=== PATIENT | female | born 1990 | race Caucasian/White ===

== ENCOUNTER → 2020-04-03 13:46 | Outpatient (CLI) | payer BC, SELFPAY ==
[2020-04-04 10:29] LABS: Covid-19 Nasal PCR Sendout P&C Positive
== END ==
PROVIDERS: PCP Family Medicine; Visit Provider Family Medicine
DX: Z20.828 Contact with and (suspected) exposure to other viral communicable diseases (principal); U07.1 COVID-19
CPT/HCPCS: U0004

== ENCOUNTER 2021-02-08 09:16 | Emergency (ER) | payer BC, SELFPAY ==
[2021-02-08 09:26] VITALS: BP 115/82; PULSE 92; RESP 16; TEMP 36.9; O2SAT 97; BMI 20.7
[2021-02-08 09:34] VITALS: BP 115/82; PULSE 92; RESP 16; TEMP 36.9
[2021-02-08 09:37] LABS: UTC Strep Screen (Rapid) Positive (Negative)
--- NOTE | 2021-02-08 09:56 | HMH.EDUTC ---
[facility] [place]ression: Strep throat Disposition: Home, Self-Care Condition on Discharge: Good Instructions: Strep Throat, DI for Strep Throat Additional Instructions: Drink plenty of fluids. Take tylenol or ibuprofen for pain or fever. Take the medications as directed. Follow up with your regular doctor. GO TO THE ER FOR ANY WORSENING SYMPTOMS Throw your tooth brush away and get a new one. Prescriptions: Ondansetron [Zofran 4mg ODT] 4 mg PO Q8HP PRN #20 tab PRN Reason: Nausea Transmission Status: Received by [facility] Amoxicillin [Amoxicillin 500mg Tab] 500 mg PO TID 10 Days #30 tab Transmission Status: Received by [facility] predniSONE [Deltasone 10mg tablet] 10 mg PO BID 3 Days #6 tab Transmission Status: Received by [facility] Referrals: Blaine Miller MD [Primary Care Provider] - Time of Disposition: 09:59 Medical Decision Making - Medical Records Medical records reviewed: No: I reviewed the patient's medical records. - Juan Inquiry Pt receiving controlled substance: No Vital Signs: 02/08/21 09:26 02/08/21 09:34 Temperature 98.4 F 98.4 F Temperature Source Oral Pulse Rate 92 H Pulse Rate [Left] 92 H Respiratory Rate 16 16 Blood Pressure 115/82 Blood Pressure [Right Arm] 115/82 Blood Pressure Mean [Right Arm] 93 02 Sat by Pulse Oximetry 97 - Lab Data Lab results reviewed: Yes: I reviewed the patient's lab results. Lab Results 02/08/21 09:28: Strep Scn Rapid Clinic Positive [place] [facility] [place] - General Stated complaint: sore throat,runny nose Time Seen by Provider: 02/08/21 09:56 Mode of Arrival: Ambulatory Source of Information: Patient Limitations: No Limitations Description of Symptoms (Recalled from Triage Doc. by RN): pt c/o sore throat with white patches. HEENT Symptoms (Recalled from RN notes): Yes (sore throat with white patches) Resp Symptoms (Recalled from RN notes): No Skin Symptoms (Recalled from RN notes): No MS Symptoms (Recalled from RN notes): No Functional Status (Recalled from RN notes): na - History of Present Illness Provider Complaint: She c/o sore throat for the past 1 day. 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 She has been vaccinated against covid-19. She denies chest congestion, but she does have a dry cough. - Related Data Home Medications Medication Instructions Recorded Confirmed albuterol sulfate 90 mcg/actuation 2 puff INHALATION Q6H PRN 07/29/20 aerosol inhaler hydroxyzine HCl 10 mg tablet 10 mg PO TID PRN 07/29/20 Previous Rx's Medication Instructions Recorded Amoxicillin [Amoxicillin 500mg Tab] 500 mg PO TID 10 Days #30 tab 02/08/21 Ondansetron [Zofran 4mg ODT] 4 mg PO Q8HP PRN #20 tab 02/08/21 predniSONE [Deltasone 10mg tablet] 10 mg PO BID 3 Days #6 tab 02/08/21 Allergies Allergy/AdvReac Type Severity Reaction Status Date / Time No Known Allergies Allergy Verified 09/05/20 09:28 - Worker's Comp Is this a Worker's Comp case?: No [facility] History - Hepatitis A Screen Drug use history?: No High risk sexual behaviors?: No History of sexually transmitted infection?: No Currently employed?: No Childcare worker?: No Do you have indoor plumbing?: Yes Do you have electricity?: Yes Attestation statement:: This patient has been screened for Hepatitis A risk factors. I have reviewed the patient's past medical history: Yes Medical History: Reports:: Anxiety, Asthma Other Surgeries: Yes: No Previous Surgery Fractures: No Comment: cyst removal vaginal area. wisdom teeth - Social History Smoking Status: Never smoker Alcohol Intake: never Substance Use Type: denies use Occupational Status: employed Housing: house Household Members: family - Psychiatric History Pschychiatric History:: Reports:: Anxiety Family Hx:: Cancer, Diabetes, Hypertension, Hyperlipidemia,
== END 2021-02-08 10:06 | disposition home or self-care (01) ==
PROVIDERS: Emergency Provider Nurse Practitioner Family; PCP Family Medicine
DX: J02.0 Streptococcal pharyngitis (principal); F41.9 Anxiety disorder, unspecified; J45.909 Unspecified asthma, uncomplicated
CPT/HCPCS: 87880; 99202; G0463

== ENCOUNTER 2021-06-24 16:15 | Emergency (ER) | payer BC, SELFPAY ==
[2021-06-24 17:00] VITALS: BP 121/80; PULSE 83; RESP 18; TEMP 36.6; O2SAT 99; BMI 37.9
[2021-06-24 17:04] LABS: UTC Strep Screen (Rapid) Positive (Negative)
--- NOTE | 2021-06-24 17:07 | HMH.EDUTC ---
[facility] [place] Clinical Impression: Strep throat Disposition: Home, Self-Care Condition on Discharge: Good Instructions: Strep Throat, DI for Strep Throat, Amoxicillin Additional Instructions: *Monitor Temp, Over the counter Motrin or Tylenol as directed/as needed Tylenol every 4 hours and Motrin every 6 hours (as long as your family doctor has told you that you can take it) for fever or pain. and straight to ER if unable to lower temp less than 101.0 after medication given *Warm salt water gargles may help to soothe the throat *Throat Lozenges *Warm fluids like tea with honey may help to soothe the throat *Sleep elevated *Humidifier/Vaporizer *If you did not take Penicillin shot or was unable to, start taking antibiotic immediately and make sure that you take it for the FULL length of time although you should start to feel better in 24-48 hours *change toothbrush and toothpaste 24-48 hours after starting to take antibiotics so you do not reinfect yourself Monitor Temp. Tylenol and/or Ibuprofen as needed. ER if fever is no less than 101 despite alternating Tylenol and Ibuprofen * Encourage fluids, water, Gatorade, powerade, pedialyte if /toddler/or child *Cold fluids, popsicles and ice cream may feel good on his throat * Follow up IMMEDIATELY for new or worsening symptoms or no Noticeable improvement over the next 48-72 hours. 911 for difficulty breathing or swallowing Prescriptions: Amoxicillin [Amoxicillin 500mg Cap] 500 mg PO TID #30 cap Transmission Status: Pending to [facility] Referrals: Maggie Quintero APRN [Primary Care Provider] - As needed Forms: Work/School Release Time of Disposition: 17:09 Medical Decision Making - Juan Inquiry Pt receiving controlled substance: No Juan was queried for this patient: No Vital Signs: 06/24/21 17:00 Temperature 98 F Temperature Source Oral Pulse Rate [Left] 83 Respiratory Rate 18 Blood Pressure [Right Arm] 121/80 Blood Pressure Mean [Right Arm] 93 02 Sat by Pulse Oximetry 99 - Lab Data Lab results reviewed: Yes: I reviewed the patient's lab results. Lab Results 06/24/21 16:54: Strep Scn Rapid Clinic Positive A [facility] [place] - General Stated complaint: sore throat Time Seen by Provider: 06/24/21 17:07 Mode of Arrival: Ambulatory Source of Information: Patient Limitations: No Limitations Description of Symptoms (Recalled from Triage Doc. by RN): pt c/o a sore throat since this am. 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 she started this morning with sore throat States that as the day went on it continued to get worse so this evening she came in to get checked since several of the kids at daycare had strep throat - Related Data Home Medications Medication Instructions Recorded Confirmed albuterol sulfate 90 mcg/actuation 2 puff INHALATION Q6H PRN 07/29/20 aerosol inhaler hydroxyzine HCl 10 mg tablet 10 mg PO TID PRN 07/29/20 Previous Rx's Medication Instructions Recorded Amoxicillin [Amoxicillin 500mg Tab] 500 mg PO TID 10 Days #30 tab 02/08/21 Ondansetron [Zofran 4mg ODT] 4 mg PO Q8HP PRN #20 tab 02/08/21 predniSONE [Deltasone 10mg tablet] 10 mg PO BID 3 Days #6 tab 02/08/21 Amoxicillin [Amoxicillin 500mg 500 mg PO TID #30 cap 06/24/21 Cap] Allergies Allergy/AdvReac Type Severity Reaction Status Date / Time No Known Allergies Allergy Verified 09/05/20 09:28 - Worker's Comp Is this a Worker's Comp case?: No [facility] History - Hepatitis A Screen Drug use history?: No High risk sexual behaviors?: No History of sexually transmitted infection?: No Currently employed?: No Childcare worker?: No Do you have indoo
[2021-06-24 17:36] VITALS: BP 121/80; PULSE 83; RESP 18; TEMP 36.6
== END 2021-06-24 17:38 | disposition home or self-care (01) ==
PROVIDERS: Emergency Provider Nurse Practitioner; PCP Nurse Practitioner Family
DX: J02.0 Streptococcal pharyngitis (principal)
CPT/HCPCS: 87880; 99212; G0463

== ENCOUNTER 2021-08-31 09:05 | Emergency (ER) | payer BC, SELFPAY ==
[2021-08-31 09:35] VITALS: BP 131/92; PULSE 88; RESP 18; TEMP 36.8; O2SAT 99; BMI 37.4
[2021-08-31 10:05] LABS: Strep Scrn Group A (Rapid) Negative (Negative)
--- NOTE | 2021-08-31 10:12 | HMH.EDUTC ---
[facility] [place] Clinical Impression: URI (upper respiratory infection) Qualifiers: URI type: unspecified URI Qualified Code(s): J06.9 - Acute upper respiratory infection, unspecified Disposition: Home, Self-Care Condition on Discharge: Good Instructions: Cefdinir, Sore Throat Additional Instructions: *Monitor Temp, Over the counter Motrin or Tylenol as directed/as needed Tylenol every 4 hours and Motrin every 6 hours (as long as your family doctor has told you that you can take it) for fever or pain. and straight to ER if unable to lower temp less than 101.0 after medication given *Warm salt water gargles may help to soothe the throat *Throat Lozenges *Warm fluids like tea with honey may help to soothe the throat *Sleep elevated *Humidifier/Vaporizer Your throat swab was sent for culture. Those results are typically sent to your primary care. Be sure to follow up in 2-3 days with your family doctor/primary care physician if no improvement so they can review those result and treat if necessary. If you don?t have a primary care doctor, I recommend you get one but in the mean time, you will have to return to a walk in clinic Follow up IMMEDIATELY for new or worsening symptoms or no Noticeable improvement over the next 48-72 hours. 911 for difficulty breathing or swallowing You were tested for today for upper respiratory Panel COVID19 your test result should be back in the next 24-48 hours, you may check your results on the [facility] Prescriptions: Cefdinir [Omnicef 300mg Capsule] 300 mg PO BID #20 cap Transmission Status: Pending to [facility] Referrals: Maggie Quintero APRN [Primary Care Provider] - As needed Time of Disposition: 10:28 Medical Decision Making - Juan Inquiry Pt receiving controlled substance: No Juan was queried for this patient: No Vital Signs: 08/31/21 09:35 Temperature 98.2 F Temperature Source Oral Pulse Rate [Right Brachial] 88 Respiratory Rate 18 Blood Pressure [Right Arm] 131/92 H Blood Pressure Mean [Right Arm] 105 Blood Pressure Source [Right Arm] Automatic Cuff Blood Pressure Position [Right Arm] Sitting 02 Sat by Pulse Oximetry 99 Oxygen Delivery Method Room Air - Lab Data Lab results reviewed: Yes: I reviewed the patient's lab results. Lab Results 08/31/21 09:25: Group A Strep Rapid Negative Orders (Tests/Meds): ORDERS Category Date Time Status Covid-19 Nasal PCR ([facility]) Routine Lab 08/31/21 10:16 Ordered Rapid Strep Scrn Group A [Strep Scrn Group A (Rapid)] Lab 08/31/21 10:16 Ordered Stat Strep Screen Confirmation Stat Micro 08/31/21 09:25 Received [facility] [place] HPI - General Stated complaint: sore throat Time Seen by Provider: 08/31/21 10:12 Mode of Arrival: Ambulatory Source of Information: Patient Limitations: No Limitations Description of Symptoms (Recalled from Triage Doc. by RN): PATIENT C/O SORE THROAT, EAR PAIN, RUNNY NOSE, AND HYDE SPOT ON BACK OF THROAT X 2 DAYS HEENT Symptoms (Recalled from RN notes): Yes Resp Symptoms (Recalled from RN notes): No Skin Symptoms (Recalled from RN notes): No MS Symptoms (Recalled from RN notes): No Functional Status (Recalled from RN notes): WNL - History of Present Illness Provider Complaint: Patient states that she has been battling strep throat for the last couple of months on and off States that she has been having sore throat, pain in both ears, runny nose and hurts when she swallows States that she noticed a hyde area in the back of her throat she was worried about so she came in - Related Data Home Medications Medication Instructions Recorded Confirmed hydrOXYzine HCL [Hydroxyzine HCl] 25 mg PO DAILY 08/31/21 08/31/21 Previous Rx's Medication Instructions Recorded Cefdinir [Omnicef 300mg Capsule] 300 mg PO BID #20 cap 08/31/21 Allergies Allergy/AdvReac Type Severity Reaction Status Date / Time No Known Allergies Allergy Verified 09/05/20 09:28
[2021-08-31 10:32] VITALS: BP 131/92; PULSE 88; RESP 18; TEMP 36.8; O2SAT 99
[2021-08-31 11:00] LABS: Adenovirus,PCR Not Detected (NotDetected); Bordetella Pertussis Not Detected (NotDetected); Chlamydophila Pneumoniae, PCR Not Detected (NotDetected); Coronavirus 229E Not Detected (NotDetected); Coronavirus NL63 Not Detected (NotDetected); Coronavirus OC43 Not Detected (NotDetected); Coronovirus HKU1,PCR Not Detected (NotDetected); Human Metapneumovirus Not Detected (NotDetected); Influenza A, PCR Not Detected (NotDetected); Influenza AH1, 2009 Not Detected (NotDetected); Influenza AH1, PCR Not Detected (NotDetected); Influenza AH3,PCR Not Detected (NotDetected); Influenza B, PCR Not Detected (NotDetected); Parainfluenza 1, PCR Not Detected (NotDetected); Parainfluenza 2, PCR Not Detected (NotDetected); Parainfluenza 3, PCR Not Detected (NotDetected); Parainfluenza 4, PCR Not Detected (NotDetected); Respiratory Syncytial Virus Not Detected (NotDetected); Rhinovirus/Enterovirus Not Detected (NotDetected)
[2021-08-31 11:02] LABS: Mycoplasma Pneumoniae, PCR Not Detected (NotDetected)
== END 2021-08-31 10:33 | disposition home or self-care (01) ==
PROVIDERS: Emergency Provider Nurse Practitioner; PCP Nurse Practitioner Family
DX: J06.9 Acute upper respiratory infection, unspecified (principal); J02.9 Acute pharyngitis, unspecified; F41.9 Anxiety disorder, unspecified
CPT/HCPCS: 87430; 87486; 87581; 87632; 87798; 99213; C9803; G0463; U0003; U0005

== ENCOUNTER 2024-03-27 15:42 | Outpatient (CLI) | payer BC, SELFPAY ==
--- NOTE | 2024-03-27 15:51 | US_ITS ---
FINAL REPORT TECHNIQUE: Multiple transverse and longitudinal images CLINICAL HISTORY: RUQ PAIN FINDINGS: The gallbladder shows no wall thickening, distention or stone disease. No biliary ductal dilatation is appreciated. No fluid collections are seen. There is fatty infiltration of the liver. Limited portions of the right kidney are unremarkable. IMPRESSION: Fatty liver. Reviewed, Interpreted and Dictated by Rashida Delgado MD Transcribed by Payton Mabry Authenticated and [facility]
--- NOTE | 2024-03-27 15:51 | US_ITS ---
PROCEDURE: US PELVIC CLINICAL INDICATION: RLQ PAIN/ ABDMNL PAIN COMPARISON: US US ABDOMEN LIMITED from 03/27/2024 FINDINGS: Transabdominal sonographic images of the pelvis were obtained. UTERUS: 8.4cm x 5.1cmx 3.2cm anteverted with a combined endometrial thickness of 3.1mm. LEFT OVARY: 2.9 cmx2.1cmx1.9cm with a volume of 5.9ml. There are multiple small peripheral follicles. RIGHT OVARY: 2.5cmx 1.7 cmx1.7 cm with a volume of 3.8ml. There are multiple small peripheral follicles. Both ovaries are seen and appear polycystic. Doppler flow to both ovaries are seen. There is no fluid in the cul-de-sac. IMPRESSION: 1. Anteverted uterus normal in shape and size. The endometrium is thin. 2. Both ovaries are normal in size and and appear polycystic. 3. No fluid in the cul-de-sac. Dictated by: Brown Vyas MD 03/28/2024 08:39 Brown Vyas MD in OV 03/28/2024 08:39
== END 2024-03-27 23:59 | disposition home or self-care (01) ==
LOC: RAD 15:43
PROVIDERS: PCP Nurse Practitioner; Visit Provider Nurse Practitioner
DX: R10.31 Right lower quadrant pain (principal); R10.9 Unspecified abdominal pain
CPT/HCPCS: 76705; 76856

== ENCOUNTER 2024-09-14 11:11 | Outpatient (CLI) | payer BC, SELFPAY ==
[2024-09-14 12:05] LABS: Basophils % 0.5 % (0.1-2.0); Eosinophils # 0.1 Kmm3 (0.0-0.4); Eosinophils % 1.4 % (0.1-12.0); Hematocrit 40.3 % (37.0-47.0); Hemoglobin 13.3 g/dL (12.2-16.2); Immature Granulocytes # 0.01 10^3uL; Immature Granulocytes % 0.1 %; Lymphocytes % 25.5 % (10-50); Mean Corpuscular Volume 90.8 fl (81-99); Mean Platelet Volume 8.7 fl (7.4-10.4); Monocytes # 0.6 K/mm3 (0.1-1.0); Monocytes % 7.1 % (1.7-9.3); Neutrophils # 5.1 K/mm3 (1.8-7.8); Neutrophils % 65.4 % (37.0-80.0); Nucleated Red Blood Cells # 0 10^3/uL; Nucleated Red Blood Cells % 0 %; Platelet Count 279 K/mm3 (142-424); Red Blood Count 4.44 M/mm3 (4.20-5.40); Red Cell Distribution Width 11.9 % (11.5-17.5); Red Cell Distribution Width-SD 39.5 fL; White Blood Count 7.8 K/mm3 (4.8-10.8)
[2024-09-14 12:46] LABS: Albumin Level 4.4 g/dl (3.5-5.0); Chloride 108 mmol/L (98-107); Potassium 4.1 mmoL/L (3.5-5.1); Sodium 138 mmol/L (136-145)
[2024-09-14 12:48] LABS: Blood Urea Nitrogen 16 mg/dl (7-17); Estimated Glomerular Filt Rate 97 ml/min (>60); GFR (African American) 117 ML/MIN (>60)
[2024-09-14 12:49] LABS: Alanine Aminotransferase 23 U/L (12-78); Albumin/Globulin Ratio 1.6 (1.1-1.8); Alkaline Phosphatase 49 U/L (38-126); Anion Gap 8.1 mEq/L (5-15); Aspartate Amino Transferase 21 U/L (14-36); Bilirubin,Total 0.3 mg/dl (0.2-1.3); Calcium 10.8 mg/dl (8.4-10.2); Carbon Dioxide 26 mmol/L (22.0-30.0); Globulin 2.8 g/dL (1.3-3.2); Glucose 89 mg/dl (74-100); Total Protein,Serum 7.2 g/dl (6.3-8.2)
--- OUTSIDE RECORDS SUMMARY | 2024-09-14 13:09 | XMS_ITS | Data Portability ---
Author Organization [facility] & OMAR Arce ADMIN Address [address] [place] [id number] Assessment No assessment recorded. Plan of Treatment Reminders Order Date Submit Date Provider Last Modified By Organization Details Last Modified Time Details Appointments None record ed. Lab None record ed. Referral None record ed. Procedures None record ed. Surgeries None record ed. Imaging None record ed. Medication Orders None record ed. Patient TargetsNo targets recorded. Patient InstructionsNo instructions recorded. Reason for Referral None Reported. Problems Name Problem SNOMED Code Status Onset Date Resolution Date Notes Provider Name and Address Organization Details Recorded Time Bilateral middle ear chronic mucoid otitis media 0261896483054 106 Active 2022 [facility] [place] 3 16:42:34 Dysfunction of bilateral eustachian tubes 0517202843583 100 Active 2022 [facility] [place] 3 16:42:34 Problem Notes None recorded. Medical Equipment None Reported. Allergies No known drug allergies Medications Name Sig Start Date Stop Date Status Note LastModified by Organization Details LastModified Time amoxicillin 500 mg capsule TAKE 1 CAPSULE BY MOUTH THREE TIMES DAILY 04/22 completed Not Available Not Available Not Available azithromycin 250 mg tablet TAKE 2 TABLETS BY MOUTH ON DAY 1, AND THEN TAKE 1 TABLET BY MOUTH ONCE A DAY ON DAY 2 THROUGH DAY 5 04/22 completed Not Available Not Available Not Available prednisone 20 mg tablet TAKE 1 TABLET BY MOUTH TWICE DAILY WITH FOOD OR MILK FOR 5 DAYS 04/22 completed Not Available Not Available Not Available hydroxyzine HCl 25 mg tablet TAKE 1 TABLET BY MOUTH EVERY 8 HOURS FOR 30 DAYS active Not Available Not Available No t Available cefdinir 300 mg capsule TAKE 1 CAPSULE BY MOUTH TWICE DAILY 04/22 completed Not Available Not Available Not Available Vitals Date Recorded Body height Body mass index (BMI) Body weight Body temperature Heart rate Systolic blood pressure Diastolic blood pressure Provider Name and Address Organization Details Last Updated DateTime 3 165.1 cm 38.6 kg/m2 255319. 43 g 98.3 [degF] 97 /min 148 mm[Hg] 86 mm[Hg] Joanne Garcia [place] - LPNT [facility] & [place] 3 15:57:21 Social History None recorded. Functional Status None recorded. Mental Status None recorded. Family History Relationship Description Onset Age of this Age Resolved Age Notes LastModified by Organization Details LastModified Time Maternal Uncle Disorder of endocrine system pt. added direct ly (04/20) [email or web address] Not available 04/20/2022 17:05:51 Medical History Condition Response None N Emphysema N Glaucoma N Depression N Anesthesia Complications N Anxiety Disorder Y Arthritis N Hearing Loss N Acid Reflux (GERD) N Cancer N Stroke N Headaches N Fibromyalgia N Speech Delay N Kidney Disease N Allergies/Hayfever N Heart Problems N Heart Conditions N Migraines N Thyroid Problems N Developmental Delay N Anemia N Immune System Disorder N Heart Attack ([place]) N Diabetes N Bleeding Disorder N Tuberculosis N Hyperlipidemia N Asthma N Sleep Disorder N GERD/Reflux N Heart Disease N Hypertension N Gynecological HistoryNo gynecological history recorded. Obstetrics History GPAL:G 0 P 0 0 0 0 Past Encounters Encounter ID Performer Location Encounter Start Date Encounter Closed Date Diagnosis/Indication Diagnosis SNOMED-CT Code Diagnosis ICD10 Code Diagnosis Note [id number] Jenna Templeton MD [id number] [place] [address] [place] [address] 04/22/2022 15:41:37 04/22/2022 16:20:58 Amygdalolith 9205175 J35.8 Explained to patient this growth on her tonsil is most likely a francisco cyst. I see tonsil stones as well. Explained this cyst is not malignant. Would recommend her using a water pik to rinse her tonsils. If this doesn't help reduce the amount of stones, we can discuss tonsil removal. Will see her back as needed. Health Concerns Section Related Observation LastModified by Organization Andres thurman LastModified Time None Recorded Concern Status LastModified by Organization Details LastModified Time None Recorded Advance Directives Directive None Recorded Payers Insurance Date Sequence Insurance Name Policy Number Policy Wood Covered Member ID Wood Member ID Guarantor Name 05/04/2022 1 [place] [id number] [facility] [id number] [facility] Notes Date Note Type Note Provider Name and Address Organization Details Recorded Time 04/22/2022 text/html 31yo female in the office today to discuss her tonsils. States she gets tonsil stones often. 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 Jenna Templeton MD [address], [place], [address], [facility] - [facility] - [place] & [place] 04/28/2022 10:17:47 OBGyn Episode No OBEpisode recorded.
== END 2024-09-14 23:59 | disposition home or self-care (01) ==
LOC: LAB 11:11
PROVIDERS: PCP Nurse Practitioner; Visit Provider Nurse Practitioner
DX: K76.0 Fatty (change of) liver, not elsewhere classified (principal); R10.11 Right upper quadrant pain
CPT/HCPCS: 36415; 80053; 85025

== ENCOUNTER 2024-09-26 07:41 | Outpatient (CLI) | payer BC, SELFPAY ==
--- NOTE | 2024-09-26 07:42 | MM_ITS ---
PROCEDURE INFORMATION: Exam: MG Bilateral Screening 3D Mammography Exam date and time: 09/26/2024 7:44 AM Age: 33 years old Clinical indication: Screening examination. TECHNIQUE: Imaging protocol: Bilateral Screening tomosynthesis and 2D mammography including computer-aided detection (CAD) when performed. COMPARISON: No relevant prior studies available. FINDINGS: MAMMOGRAPHY: Breast composition: There are scattered areas of fibroglandular density. Mass: None. Architectural distortion: None. Calcifications: No suspicious calcifications. Asymmetric density: None. Skin thickening: None. Axillary adenopathy: None. IMPRESSION: No mammographic evidence of malignancy. Annual screening is recommended unless otherwise clinically indicated. ASSESSMENT: BI-RADS Category 1: Negative.
--- NOTE | 2024-09-26 07:43 | US_ITS ---
FINAL REPORT CLINICAL HISTORY: SCREENING, FATTY LIVER COMPARISON: 03/27/2024 FINDINGS: Sonographic images of the right upper quadrant were obtained. There is persistent fatty change of the liver without focal lesion. There are no findings of cirrhosis. Gallbladder and bile ducts are normal. IMPRESSION: Persistent fatty change of the liver without focal liver lesion. Reviewed, Interpreted and Dictated by Rashida Delgado MD Transcribed by Marcella Reyes Authenticated and [facility]
--- OUTSIDE RECORDS SUMMARY | 2024-09-26 07:43 | XMS_ITS | Data Portability ---
Author Organization [facility] & TRISH Arce ADMIN Address [address] [place] [id number] Assessment No assessment recorded. Plan of Treatment [...] Bilateral middle ear chronic mucoid otitis media 0873961880675 106 [facility] 2022 [facility] [place] 3 16:42:34 Dysfunction of bilateral eustachian tubes 9352569621608 100 Active 2022 Joanne carroll [facility] & [place] 3 16:42:34 Problem Notes None recorded. Medical [...] Updated DateTime 3 165.1 cm 38.6 kg/m2 822690. 43 g 98.3 [degF] 97 /min 148 mm[Hg] 86 mm[Hg] Joanne Garcia [place] - LPNT [facility] & [place] 3 15:57:21 Social History None recorded. Functional Status None recorded. Mental Status None recorded. Family History Relationship Description Onset Age of this Age Resolved Age Notes LastModified by Organization Details LastModified Time Maternal Uncle Disorder of endocrine system pt. added direct ly (04/20) [email or web address] Not available 04/20/2022 17:05:51 Medical History Condition Response Allergies/Hayfever N Heart Problems N None N Heart Conditions N Emphysema N Migraines N Thyroid Problems N Developmental Delay N Depression N Glaucoma N Anemia N Immune System Disorder N Anesthesia Complications N Heart Attack ([place]) N Anxiety Disorder Y Diabetes N Bleeding Disorder N Arthritis N Hearing Loss N Tuberculosis N Acid Reflux (GERD) N Hyperlipidemia N Cancer N Stroke N Asthma N Sleep Disorder N GERD/Reflux N Heart Disease N Fibromyalgia N Headaches N Hypertension N Speech Delay N Kidney Disease N Gynecological HistoryNo gynecological history recorded. Obstetrics History GPAL:G 0 P 0 0 0 0 Past Encounters Encounter ID Performer Location Encounter Start Date Encounter Closed Date Diagnosis/Indication Diagnosis SNOMED-CT Code Diagnosis ICD10 Code Diagnosis Note [id number] Jenna Templeton MD [id number] [place] [address] [place] [address] 04/22/2022 15:41:37 04/22/2022 16:20:58 Amygdalolith [id number] J35.8 Explained to patient this growth on [...] Name 05/04/2022 1 [place] [id number] [facility] [id number] 22 [facility] Notes Date Note Type Note Provider Name and Address Organization Details Recorded Time 04/22/2022 text/html 31yo female in the office today to discuss her tonsils. States she gets tonsil stones often. 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 Jenna Templeton MD [address], [place], [address], [facility] - NT - [place] & [place] 04/28/2022 10:17:47 OBGyn Episode No OBEpisode recorded.
== END 2024-09-26 23:59 | disposition home or self-care (01) ==
LOC: RAD 07:41
PROVIDERS: PCP Nurse Practitioner; Visit Provider Nurse Practitioner
DX: Z12.31 Encounter for screening mammogram for malignant neoplasm of breast (principal); K76.0 Fatty (change of) liver, not elsewhere classified; R92.323 Mammographic fibroglandular density, bilateral breasts
CPT/HCPCS: 76705; 77063; 77067

== ENCOUNTER 2024-11-08 10:26 | Outpatient (CLI) | payer BC, SELFPAY ==
--- NOTE | 2024-11-08 10:29 | CT_ITS ---
FINAL REPORT TECHNIQUE: After the administration of oral and intravenous contrast, axial images were obtained through the abdomen and pelvis by computed tomography. The study was performed with techniques to keep radiation dose as low as reasonably achievable, (ALARA). Individual dose reduction techniques using automated exposure control or adjustment of mA and/or kV according to the patient's size were employed. CLINICAL HISTORY: rlq ABD PAIN FINDINGS: Abdomen: The lung bases are clear. There is mild fatty infiltration of the liver. The gallbladder is present. The spleen, pancreas, adrenals and kidneys appear unremarkable. The aorta is normal in caliber. There is no free fluid or adenopathy. Pelvis: The appendix is normal. There is a complex structure in the right adnexal region measuring 4.5 x 3.2 cm, probably related to the right ovary with peripherally enhancing cystic structures. Largest of these enhancing cystic structures measures approximately 2.3 cm. The uterus is anteverted. The urinary bladder is incompletely distended. There is no free fluid or adenopathy. IMPRESSION: Asymmetrically enlarged right ovary with enhancing cystic structures, favor verse to be physiologic in her reproductive age patient. If this is of clinical concern, endovaginal ultrasound may be helpful. Reviewed, Interpreted and Dictated by Enrrique Monson MD Transcribed by Payton Mabry Authenticated and [facility]
[2024-11-08] MEDS: IOPAMIDOL-370 (76%);100ML BOTTLE 75 ML IV (11:02)
[2024-11-08] MEDS: SODIUM CHLORIDE 0.9% 10ML SYR (RAD ONLY) 10 ML IV (11:03)
== END 2024-11-08 23:59 | disposition home or self-care (01) ==
LOC: RAD 10:26
PROVIDERS: PCP Nurse Practitioner; Visit Provider Nurse Practitioner
DX: N83.8 Other noninflammatory disorders of ovary, fallopian tube and broad ligament (principal); K76.0 Fatty (change of) liver, not elsewhere classified
CPT/HCPCS: 74177; Q9967

== ENCOUNTER 2024-11-24 15:11 | Outpatient (CLI) | payer BC, SELFPAY ==
--- NOTE | 2024-11-24 15:30 | US_ITS ---
PROCEDURE: US TRANSVAGINAL CLINICAL INDICATION: F/u after CT COMPARISON: CT CT ABDOMEN PELVIS W CON from 11/08/2024 FINDINGS: Transvaginal sonographic images of the pelvis were obtained. UTERUS: 6.5 cm x 4.5cmx 3.5 cm anteverted with a combined endometrial thickness of 4.7mm. Endometrium appears trilaminar. There is a small hyperechoic area adjacent to the endometrium at the fundus. LEFT OVARY: [id number] with a volume of 3.8ml. There is a follicle in the left ovary measuring 1.5 cm x 1.1 cm x 0.4 cm There are several small peripheral follicles. RIGHT OVARY: 3cmx 2ojt4or with a volume of 3.8ml. There are multiple small peripheral follicles. Both ovaries are seen and appear normal. Doppler flow to both ovaries are seen. There is no fluid in the cul-de-sac. IMPRESSION: 1. Anteverted uterus normal in shape and size. The endometrium is thin and trilaminar. There is a small hyperechoic area at the fundus adjacent to the endometrium that could be adenomyosis. 2. Both ovaries are seen and appear normal. The left ovary has a small follicle measuring 1.5 cm. Both ovaries have multiple small follicles. 3. Fluid in the cul-de-sac. Dictated by: Brown Vyas MD 11/24/2024 16:18 Brown Vyas MD in [place] 11/24/2024 16:18
== END 2024-11-24 23:59 | disposition home or self-care (01) ==
LOC: RAD 15:11
PROVIDERS: PCP Nurse Practitioner; Visit Provider Obstetrics & Gynecology
DX: N83.02 Follicular cyst of left ovary (principal); N83.01 Follicular cyst of right ovary; R93.89 Abnormal findings on diagnostic imaging of other specified body structures
CPT/HCPCS: 76830

== ENCOUNTER 2025-03-27 10:49 | Outpatient (CLI) | payer BC, SELFPAY | END 2025-03-27 23:59 | disposition home or self-care (01) | LOC: LAB 10:50 | PROVIDERS: PCP Nurse Practitioner; Visit Provider Obstetrics & Gynecology | DX: Z34.90 Encounter for supervision of normal pregnancy, unspecified, unspecified trimester (principal) | CPT/HCPCS: 36415; 84144; 84702 ==